=== PATIENT | female | born 1980 | race Caucasian/White ===

== ENCOUNTER 2024-02-26 14:42 | Emergency (ER) | payer BC, SELFPAY ==
[2024-02-26] VITALS (17 sets, daily range): BP systolic 134–177; BP diastolic 68–88; PULSE 66–88; RESP 14–20; TEMP 36.2; O2SAT 94–98; BMI 56.6
--- NOTE | 2024-02-26 15:05 | CRLHL7_ITS ---
For Patients: As a result of the Cures Act, medical imaging exams and procedure reports are released immediately into your electronic medical record. You may view this report before your referring provider. If you have questions, please contact your health care provider. INDICATION: LEFT ARM WEAKNESS COMPARISON: None TECHNIQUE: CT of the head without contrast. FINDINGS: Brain Parenchyma: No acute infarct, acute intracranial hemorrhage, mass effect, or midline shift. Ventricles: No hydrocephalus. Extra-axial Spaces: No abnormal fluid collection. Paranasal sinuses: No significant mucosal thickening. Orbits: Unremarkable Mastoid Sinuses: Unremarkable Cranium: No acute fracture Soft tissues: Unremarkable IMPRESSION: No CT evidence of an acute intracranial process. Please note that all CT scans at this facility use dose modulation, iterative reconstruction, and/or weight-based dosing when appropriate to reduce radiation dose to as low as reasonably achievable. Dictated by Brent Chacon MD @ 02/26/2024 3:25:10 PM (Electronically Signed)
--- NOTE | 2024-02-26 15:30 | ED_ITS ---
HPI - Neuro Symptoms/Deficit General Date Seen: 02/26/24 <Nolberto Bennett MD - Last Filed: 02/27/24 09:41> Chief Complaint: Neuro Symptoms/Altered Deficit <Nolberto Bennett MD - Last Filed: 02/27/24 09:41> Stated Complaint: LT arm tingling, high bp and pulse <Nolberto Bennett MD - Last Filed: 02/27/24 09:41> Time Seen by Provider: 02/26/24 15:01 <Nolberto Bennett MD - Last Filed: 02/27/24 09:41> Source: patient <Nolberto Bennett MD - Last Filed: 02/27/24 09:41> Mode of arrival: ambulatory <Nolberto Bennett MD - Last Filed: 02/27/24 09:41> Limitations: no limitations <Nolberto Bennett MD - Last Filed: 02/27/24 09:41> History of Present Illness HPI Narrative: Patient is a very nice 43-year-old female who presents here for evaluation of left arm numbness tingling and clumsiness that occurred since 12:30 p.m. while she was at work. She said she noted that it almost came from her fingers up to her neck and face, her co-worker noted that her face was red. It has improved markedly since then, with only some clumsiness of her left hand notable at the present time. She notes no nausea no vomiting, and denies a headache, has never before had this, with no previous history of strokes or any cardi ovascular disease. Is a nonsmoker lifetime. Denies a history of diabetes. <Nolberto Bennett MD - Last Filed: 02/27/24 09:41> Location: left face <Nolberto Bennett MD - Last Filed: 02/27/24 09:41> History of same: No <Nolberto Bennett MD - Last Filed: 02/27/24 09:41> Severity: moderate <Nolberto Bennett MD - Last Filed: 02/27/24 09:41> Quality: weak and improving <Nolberto Bennett MD - Last Filed: 02/27/24 09:41> Relieving factors: none <Nolberto Bennett MD - Last Filed: 02/27/24 09:41> Exacerbating factors: none <Nolberto Bennett MD - Last Filed: 02/27/24 09:41> Context: sudden onset <Nolberto Bennett MD - Last Filed: 02/27/24 09:41> On Anticoagulants: No <Nolberto Bennett MD - Last Filed: 02/27/24 09:41> Treatments Prior to Arrival: none <Nolberto Bennett MD - Last Filed: 02/27/24 09:41> Related Data Home Medications: Home Medications ?Medication ?Instructions ?Recorded ?Confirmed lisinopril 20 mg tablet 20 mg PO DAILY 03/28/23 02/26/24 Previous Rx's ?Medication ?Instructions ?Recorded aspirin 81 mg capsule 81 mg PO DAILY #30 caps 02/26/24 clopidogrel 75 mg tablet (Plavix) 75 mg PO DAILY #20 tabs 02/26/24 <Nolberto Bennett MD - Last Filed: 02/27/24 09:41> Allergies/Adverse Reactions: Allergies Allergy/AdvReac Type Severity Reaction Status Date / Time Penicillins Allergy Hives Verified 02/26/24 14:52 <Nolberto Bennett MD - Last Filed: 02/27/24 09:41> Review of Systems Status of ROS: Reports: 10 or more systems reviewed and unremarkable except as noted in History and below <Nolberto Bennett MD - Last Filed: 02/27/24 09:41> Exam Narrative: Exam Narrative: Patient is seen in room a, other than having some anxiety she appears to be in no apparent distress GCS is 15/15, alert oriented x3, pupils equal round reactive to light she tracks normally there is no visual field abnormality, there is no nystagmus or TMs are normal bilaterally, oropharynx is normal tongue protrudes normal in the midline, her neck is supple full range of motion carotid upstrokes are equal bilaterally JVP is flat her chest is good air entry bilaterally with no wheezing crackles noted heart sounds are normal she is right-hand dominant, moves her extremities normal, there is no pronator drift, E she is able to walk normally, heel and toe walking were normal for me in the room, sure speech is normal. NIH screen is 1, with some clumsiness noted of her left hand. <Nolberto Bennett MD - Last Filed: 02/27/24 09:41> Const: Vital Signs, click to edit/add: Vital Signs - 24 hr 02/26/24 14:53 02/26/24 15:15 02/26/24 15:27 Temperature 97.1 F L Pulse Rate Pulse Rate [Pulse Oximeter] 86 85 Respiratory Rate 14 20 Blood Pressure Blood Pressure [Ri ght Forearm] 177/77 H 149/88 H Pulse Oximetry 97 97 97 Oxygen Delivery Me thod Room Air Room Air 02/26/24 15:27 02/26/24 15:30 02/26/24 15:31 Temperature Pulse Rate 88 81 83 Pulse Rate [Pulse Oximeter] Respiratory Rate 20 Blood Pressure 172/73 H Blood Pressure [Ri ght Forearm] Pulse Oximetry 97 97 96 Oxygen Delivery Me thod 02/26/24 15:46 02/26/24 15:47 02/26/24 15:48 Temperature Pulse Rate 75 76 76 Pulse Rate [Pulse Oximeter] Respiratory Rate 20 Blood Pressure 134/68 Blood Pressure [Ri ght Forearm] Pulse Oximetry 97 98 95 Oxygen Delivery Me thod 02/26/24 16:00 02/26/24 17:29 02/26/24 17:30 Temperature Pulse Rate 79 72 71 Pulse Rate [Pulse Oximeter] Respiratory Rate Blood Pressure Blood Pressure [Ri ght Forearm] Pulse Oximetry 97 94 96 Oxygen Delivery Me thod 02/26/24 17:31 02/26/24 17:32 02/26/24 17:45 Temperature Pulse Rate 69 66 72 Pulse Rate [Pulse Oximeter] Respiratory Rate 20 Blood Pressure 153/77 H Blood Pressure [Ri ght Forearm] Pulse Oximetry 96 96 96 Oxygen Delivery Me thod 02/26/24 18:00 02/26/24 18:59 02/26/24 19:00 Temperature Pulse Rate 69 76 Pulse Rate [Pulse Oximeter] Respiratory Rate 16 Blood Pressure 145/84 H Blood Pressure [Ri ght Forearm] Pulse Oximetry 97 96 Oxygen Delivery Me thod <Nolberto Bennett MD - Last Filed: 02/27/24 09:41> Vital Signs, click to edit/add: Vital Signs - 24 hr 02/26/24 14:53 02/26/24 15:15 02/26/24 15:27 Temperature 97.1 F L Pulse Rate Pulse Rate [Pulse Oximeter] 86 85 Respiratory Rate 14 20 Blood Pressure Blood Pressure [Ri ght Forearm] 177/77 H 149/88 H Pulse Oximetry 97 97 97 Oxygen Delivery Me thod Room Air Room Air 02/26/24 15:27 02/26/24 15:30 02/26/24 15:31 Temperature Pulse Rate 88 81 83 Pulse Rate [Pulse Oximeter] Respiratory Rate 20 Blood Pressure 172/73 H Blood Pressure [Ri ght Forearm] Pulse Oximetry 97 97 96 Oxygen Delivery Me thod 02/26/24 15:46 02/26/24 15:47 02/26/24 15:48 Temperature Pulse Rate 75 76 76 Pulse Rate [Pulse Oximeter] Respiratory Rate 20 Blood Pressure 134/68 Blood Pressure [Ri ght Forearm] Pulse Oximetry 97 98 95 Oxygen Delivery Me thod 02/26/24 16:00 02/26/24 17:29 02/26/24 17:30 Temperature Pulse Rate 79 72 71 Pulse Rate [Pulse Oximeter] Respiratory Rate Blood Pressure Blood Pressure [Ri ght Forearm] Pulse Oximetry 97 94 96 Oxygen Delivery Me thod 02/26/24 17:31 02/26/24 17:32 02/26/24 17:45 Temperature Pulse Rate 69 66 72 Pulse Rate [Pulse Oximeter] Respiratory Rate 20 Blood Pressure 153/77 H Blood Pressure [Ri ght Forearm] Pulse Oximetry 96 96 96 Oxygen Delivery Me thod 02/26/24 18:00 02/26/24 18:59 02/26/24 19:00 Temperature Pulse Rate 69 76 Pulse Rate [Pulse Oximeter] Respiratory Rate 16 Blood Pressure 145/84 H Blood Pressure [Ri ght Forearm] Pulse Oximetry 97 96 Oxygen Delivery Me thod <Daniel Simeon MD - Last Filed: 02/26/24 20:35> Documenting provider has reviewed patient's vital signs: yes <Nolberto Bennett MD - Last Filed: 02/27/24 09:41> Course Course ED Course: Patient signed out to Dr. Simeon at shift change-1600. Pending MRI of the patient's brain and MR angiogram of her head neck. After MR studies are complete I will consult again with Stroke Neurology, Dr. Cuellar through [place]. MRI Brain Impression: Unremarkable MRI of the head. No pathologic enhancement. MRA Head Impression: No evidence of proximal arterial occlusion, aneurysm, dissection, or vascular malformation. MRA Neck Impression: Unremarkable MRA of the neck as far as visualized. Patient reports that she is doing better. Her report to me is that since about 06 10 today she had tingling and numbness in her left arm and a warm tingly feeling left side of her face. She never did have clumsiness or weakness (as had been reported to me by Dr. Bennett). Symptoms are slightly better but not resolved. Recheck-after neuro imaging complete discussed with Stroke Neurology from [facility]. Initial neurologist had gone off shift. Discussed with new neurologist Dr Mckinley. Since the patient still has some ongoing (although improving) symptoms, he would recommend aspirin 81 mg, Plavix 75 mg, admit for TIA workup with plan for cardiac monitoring and TTE, further labs. Discussed with the patient. She does not want to be admitted. She is reassured by her normal MRI and wants to discharge home. Discussed the risk that if this is a TIA could evolve into a completed stroke and that we do not have a clear diagnosis for her paresthesias source time. She understands the potential for risk of discharging and the uncertain we will based on the workup so far. Nonetheless she wants to discharge. I think she does have medical decision- making capacity. Discussed again with Stroke Neurology. He would recommend aspirin 81 mg per day indefinitely or at least until TIA is ruled out. Twenty-one days of Plavix 75 mg. Follow-up outpatient for outpatient TTE, cardiac monitoring, lipid profile, hemoglobin A1c. Discussed this plan of care with the patient. She agrees. First dose of aspirin and Plavix administered here in the ER tonight. Discussed bleeding risk on Plavix. She understands only a 21 day course of Plavix but should continue aspirin indefinitely or until her follow-up provider still hurts a safe to stop. Precautions for return to the ER reviewed.. <Daniel Simeon MD - Last Filed: 02/26/24 20:35> Vital Signs Vital signs: Initial Vital Signs Temperature 97.1 F L 02/26/24 14:53 Temperature Source Temporal Artery Scan 02/26/24 14:53 Pulse Rate 86 02/26/24 14:53 Pulse Rhythm Regular 02/26/24 14:53 Respiratory Rate 14 02/26/24 14:53 Blood Pressure 177/77 H 02/26/24 14:53 Blood Pressure Mean 110 H 02/26/24 14:53 Blood Pressure Position Sitting 02/26/24 14:53 Pulse Oximetry 97 02/26/24 14:53 Oxygen Delivery Method Room Air 02/26/24 14:53 Vital Signs Temperature 97.1 F L 02/26/24 14:53 Pulse Rate 86 02/26/24 14:53 Respiratory Rate 14 02/26/24 14:53 Blood Pressure 177/77 H 02/26/24 14:53 Pulse Oximetry 97 02/26/24 14:53 Oxygen Delivery Method Room Air 02/26/24 14:53 Temperature 97.1 F L 02/26/24 14:53 Pulse Rate 76 02/26/24 18:59 Respiratory Rate 16 02/26/24 19:00 Blood Pressure 145/84 H 02/26/24 19:00 Pulse Oximetry 96 02/26/24 18:59 Oxygen Delivery Method Room Air 02/26/24 15:15 <Nolberto Bennett MD - Last Filed: 02/27/24 09:41> Initial Vital Signs Temperature 97.1 F L 02/26/24 14:53 Temperature Source Temporal Artery Scan 02/26/24 14:53 Pulse Rate 86 02/26/24 14:53 Pulse Rhythm Regular 02/26/24 14:53 Respiratory Rate 14 02/26/24 14:53 Blood Pressure 177/77 H 02/26/24 14:53 Blood Pressure Mean 110 H 02/26/24 14:53 Blood Pressure Position Sitting 02/26/24 14:53 Pulse Oximetry 97 02/26/24 14:53 Oxygen Delivery Method Room Air 02/26/24 14:53 Vital Signs Temperature 97.1 F L 02/26/24 14:53 Pulse Rate 86 02/26/24 14:53 Respiratory Rate 14 02/26/24 14:53 Blood Pressure 177/77 H 02/26/24 14:53 Pulse Oximetry 97 02/26/24 14:53 Oxygen Delivery Method Room Air 02/26/24 14:53 Temperature 97.1 F L 02/26/24 14:53 Pulse Rate 76 02/26/24 18:59 Respiratory Rate 16 02/26/24 19:00 Blood Pressure 145/84 H 02/26/24 19:00 Pulse Oximetry 96 02/26/24 18:59 Oxygen Delivery Method Room Air 02/26/24 15:15 <Daniel Simeon MD - Last Filed: 02/26/24 20:35> Medications Administered Medications: Discontinued Medications Generic Name Dose Route Start Last Admin Trade Name Freq PRN Reason Stop Dose Admin Aspirin 81 mg 02/27/24 09:00 02/26/24 20:13 Aspirin 81 Mg Tab.Chew PO 81 mg DAILY CHAIM Administration Clopidogrel Bisulfate 75 mg 02/27/24 09:00 02/26/24 20:13 Clopidogrel 75 Mg Tablet PO 75 mg DAILY CHAIM Administration Sodium Chloride 1,000 mls @ 1,000 mls/hr 02/26/24 15:15 02/26/24 18:07 0.9 % Sodium Chloride 1000 Ml IV 02/26/24 16:14 Infused .Q1H CHAIM Infusion <Nolberto Bennett MD - Last Filed: 02/27/24 09:41> Discontinued Medications Generic Name Dose Route Start Last Admin Trade Name Freq PRN Reason Stop Dose Admin Aspirin 81 mg 02/27/24 09:00 02/26/24 20:13 Aspirin 81 Mg Tab.Chew PO 81 mg DAILY CHAIM Administration Clopidogrel Bisulfate 75 mg 02/27/24 09:00 02/26/24 20:13 Clopidogrel 75 Mg Tablet PO 75 mg DAILY CHAIM Administration Sodium Chloride 1,000 mls @ 1,000 mls/hr 02/26/24 15:15 02/26/24 18:07 0.9 % Sodium Chloride 1000 Ml IV 02/26/24 16:14 Infused .Q1H CHAIM Infusion <Daniel Simeon MD - Last Filed: 02/26/24 20:35> MDM - Neuro Symptoms/Deficit MDM Narrative Medical decision making narrative: Life-threatening differential diagnosis considered include stroke, coronary artery disease, pneumonia, and heart failure. Other differential diagnosis include but are not limited to electrolyte imbalances, anemia, medication reactions, and urinary tract infection I called the stroke code , she immediately got a CT by my review the CT of her head is normal. I contacted the stroke neurologist who saw hour via tele stroke, , she suggested aspirin, up that the head CT was negative, but recommended MRI imaging. Of her head neck. <Nolberto Bennett MD - Last Filed: 02/27/24 09:41> Medical Records Attestation: I reviewed the patient's medical records. <Nolberto Bennett MD - Last Filed: 02/27/24 09:41> Lab Data Labs: Lab Results 02/26/24 02/26/24 Range/Units 16:00 16:14 WBC 8.40 (4.50-11.00) K/uL RBC 4.94 (4.00-5.20) m/uL Hgb 14.0 (12.0-16.0) gm/dL Hct 42.6 (33.0-51.0) % MCV 86 (80-100) fL MCH 28 (26-34) pg MCHC 33 (32-36) gm/dL RDW Coeff of Shoaib 13.6 (11.5-15.5) % Plt Count 293 (140-440) K/uL Neut % (Auto) 60.9 (42.0-72.0) % Lymph % (Auto) 30.2 (20-44) % [place] % (Auto) 7.9 (0.0-11.0) % Eos % (Auto) 0.4 (0.0-7.0) % Baso % (Auto) 0.4 (0.0-3.0) % Neut # (Auto) 5.12 (1.7-7.0) K/uL Lymph # (Auto) 2.54 (0.90-2.90) K/uL [place] # (Auto) 0.70 (0.00-0.90) K/UL Eos # (Auto) 0.03 (0.00-0.50) K/uL Baso # (Auto) 0.03 (0.00-0.30) K/uL Abs Immat Gran (auto) 0.02 (0.00-0.30) K/uL Imm/Tot Granulo (auto) 0.2 % INR 0.98 (0.91-1.10) APTT 37 H (23-33) Seconds D-Dimer Quant (PE/DVT) 0.22 (0.00-0.50) ug/ml Sodium 139 (135-149) mmol/L Potassium 4.5 (3.6-5.1) mmol/L Chloride 102 (96-114) mmol/L Carbon Dioxide 31 (20-32) mmol/L Anion Gap 6 L (7-15) mEq/L BUN 14 (5-24) mg/dL Creatinine 0.7 (0.5-1.5) mg/dL Estimated Creat Clear 89.48 Estimated GFR 110 ml/min Glucose 108 (60-115) mg/dL Calcium 9.7 (8.4-10.6) mg/dL Total Bilirubin 0.5 (0.1-1.5) mg/dL AST 38 H (12-35) U/L ALT 43 H (4-35) U/L Alkaline Phosphatase 120 (40-150) U/L C-Reactive Protein 1.1 H (0.5-1.0) mg/dL Total Protein 7.7 (6.0-8.3) g/dL Albumin 4.6 (3.3-5.0) g/dL POC Troponin I 0.00 L (0.01-0.04) ng/ml <Nolberto Bennett MD - Last Filed: 02/27/24 09:41> Lab Results 02/26/24 02/26/24 Range/Units 16:00 16:14 WBC 8.40 (4.50-11.00) K/uL RBC 4.94 (4.00-5.20) m/uL Hgb 14.0 (12.0-16.0) gm/dL Hct 42.6 (33.0-51.0) % MCV 86 (80-100) fL MCH 28 (26-34) pg MCHC 33 (32-36) gm/dL RDW Coeff of Shoaib 13.6 (11.5-15.5) % Plt Count 293 (140-440) K/uL Neut % (Auto) 60.9 (42.0-72.0) % Lymph % (Auto) 30.2 (20-44) % [place] % (Auto) 7.9 (0.0-11.0) % Eos % (Auto) 0.4 (0.0-7.0) % Baso % (Auto) 0.4 (0.0-3.0) % Neut # (Auto) 5.12 (1.7-7.0) K/uL Lymph # (Auto) 2.54 (0.90-2.90) K/uL [place] # (Auto) 0.70 (0.00-0.90) K/UL Eos # (Auto) 0.03 (0.00-0.50) K/uL Baso # (Auto) 0.03 (0.00-0.30) K/uL Abs Immat Gran (auto) 0.02 (0.00-0.30) K/uL Imm/Tot Granulo (auto) 0.2 % INR 0.98 (0.91-1.10) APTT 37 H (23-33) Seconds D-Dimer Quant (PE/DVT) 0.22 (0.00-0.50) ug/ml Sodium 139 (135-149) mmol/L Potassium 4.5 (3.6-5.1) mmol/L Chloride 102 (96-114) mmol/L Carbon Dioxide 31 (20-32) mmol/L Anion Gap 6 L (7-15) mEq/L BUN 14 (5-24) mg/dL Creatinine 0.7 (0.5-1.5) mg/dL Estimated Creat Clear 89.48 Estimated GFR 110 ml/min Glucose 108 (60-115) mg/dL Calcium 9.7 (8.4-10.6) mg/dL Total Bilirubin 0.5 (0.1-1.5) mg/dL AST 38 H (12-35) U/L ALT 43 H (4-35) U/L Alkaline Phosphatase 120 (40-150) U/L C-Reactive Protein 1.1 H (0.5-1.0) mg/dL Total Protein 7.7 (6.0-8.3) g/dL Albumin 4.6 (3.3-5.0) g/dL POC Troponin I 0.00 L (0.01-0.04) ng/ml <Daniel Simeon MD - Last Filed: 02/26/24 20:35> ECG Data Attestation: I personally reviewed and interpreted this ECG as follows: <Nolberto Bennett MD - Last Filed: 02/27/24 09:41> ECG interpretation date: 02/26/24 <Nolberto Bennett MD - Last Filed: 02/27/24 09:41> Interpretation: EKG shows normal sinus rhythm, no acute ST wave changes ventricular rate is 84 normal QRS normal QT interval. <Nolberto Bennett MD - Last Filed: 09/17/24 09:41> Discharge Plan Discharge Clinical Impression: Paresthesia of arm, Facial paresthesia <Nolberto Bennett MD - Last Filed: 02/27/24 09:41> Patient Disposition: Home, Self-Care <Nolberto Bennett MD - Last Filed: 02/27/24 09:41> Condition: Stable <Nolberto Bennett MD - Last Filed: 02/27/24 09:41> Instructions: Paresthesia (ED) <Nolberto Bennett MD - Last Filed: 02/27/24 09:41> Additional Instructions: As we discussed, the cause for your numbness and unusual sensations in your arm and face are not clear at this time. No sign of a stroke on her MRI. It is important for you to follow-up with your regular doctor as soon as possible. You can ask your doctor to set you up with with a referral to Neurology Clinic as well. Ask your doctor also to help do further workup with the following tests: 1. lipid panel 2. Hemoglobin A1c measurement 3. Outpatient steward/stewardess second class to look for cardiac arrhythmias 4. Transthoracic echocardiogram Stroke neurologist recommend that you start on baby aspirin every day. Continue this until your regular doctor tells you to stop. The neurologist also recommends that you take an additional blood thinning medication call Plavix for 3 weeks and then stop. If you have any worsening symptoms or any concerns, please return to the ER immediately. <Nolberto Bennett MD - Last Filed: 02/27/24 09:41> Prescriptions: New clopidogrel [Plavix] 75 mg tablet 75 mg PO DAILY Qty: 20 0RF aspirin 81 mg capsule 81 mg PO DAILY Qty: 30 2RF No Action lisinopril 20 mg tablet 20 mg PO DAILY <Nolberto Bennett MD - Last Filed: 02/27/24 09:41> Follow Up/Referrals: Kelly Estrada MD [Primary Care Provider] - <Nolberto Bennett MD - Last Filed: 02/27/24 09:41> Stand Alone Forms: MyHealth Info Instructions <Nolberto Bennett MD - Last Filed: 02/27/24 09:41>
--- NOTE | 2024-02-26 15:34 | CRLHL7_ITS ---
For Patients: As a result of the Century Cures Act, medical imaging exams and procedure reports are released immediately into your electronic medical record. You may view this report before your referring provider. If you have questions, please contact your health care provider. Indication: Left arm clumsiness Technique: [id number] and Gadolinium bolus MR angiogram of the neck with 3D MIP reconstructions provided. All measurements are based on NASCET criteria. Postcontrast images obtained after administration of 30 cc Dotarem Gadolinium-based IV contrast. Comparison: No prior studies available for comparison at this institution. Findings: Both carotid systems are unremarkable in the neck. No evidence for hemodynamically significant internal carotid artery stenosis by NASCET criteria. The cervical segments of both vertebral arteries are patent. The visualized portions of the aortic arch, great vessel origins and proximal subclavian arteries are unremarkable. Impression: Unremarkable MRA of the neck as far as visualized. Dictated by Joshua Zuniga MD @ 02/26/2024 6:30:19 PM (Electronically Signed)
--- NOTE | 2024-02-26 15:34 | CRLHL7_ITS ---
For Patients: As a result of the Century Cures Act, medical imaging exams and procedure reports are released immediately into your electronic medical record. You may view this report before your referring provider. If you have questions, please contact your health care provider. Indication: Left arm clumsiness Technique: 3D [id number] MR angiogram of the [id number] with 3-dimensional MIP projections were submitted. Comparison: No prior studies available for comparison at this institution. Findings: The visualized first and second order intracranial vessels are unremarkable. origins of the posterior cerebral arteries. No occlusion/filling defect or acquired arterial stenosis identified. No aneurysm or vascular malformation seen. Impression: No evidence of proximal arterial occlusion, aneurysm, dissection, or vascular malformation. Dictated by Joshua Zuniga MD @ 02/26/2024 6:25:04 PM (Electronically Signed)
--- NOTE | 2024-02-26 15:34 | CRLHL7_ITS ---
For Patients: As a result of the Century Cures Act, medical imaging exams and procedure reports are released immediately into your electronic medical record. You may view this report before your referring provider. If you have questions, please contact your health care provider. Indication: Left arm clumsiness. Technique: Noncontrast sagittal T1, axial FLAIR, T2 turbo spine echo, and diffusion weighted images. Supplemental post contrast T1 weighted axial and coronal sequences are provided after administration of 30 mL Dotarem gadolinium-based IV contrast. Comparison: CT 02/26/2024 Findings: Examination is limited by motion artifact. The ventricles, sulci and gyri are normal size, shape and contour for age. The midline structures are centrally located with no evidence of shift. There are no suspicious intra or extra-axial fluid collections. No evidence of restricted diffusion to suggest acute ischemia. Expected flow voids in the cavernous carotids and basilar artery. No abnormal contrast enhancement involving the brain parenchyma, meninges, calvarium or skull base. Mild polypoid mucosal thickening in right sphenoid sinus. Impression: Unremarkable MRI of the head. No pathologic enhancement. Dictated by Joshua Zuniga MD @ 02/26/2024 6:28:24 PM (Electronically Signed)
[2024-02-26 16:16] LABS: Basophils Absolute Auto 0.03 K/uL (0.00-0.30); Basophils Percent Auto 0.4 % (0.0-3.0); Eosinophils Absolute Auto 0.03 K/uL (0.00-0.50); Eosinophils Percent Auto 0.4 % (0.0-7.0); Hematocrit 42.6 % (33.0-51.0); Immature Granulocytes Abs Auto 0.02 K/uL (0.00-0.30); Immature Granulocytes Pct Auto 0.2 %; Lymphocytes Absolute Auto 2.54 K/uL (0.90-2.90); Lymphocytes Percent Auto 30.2 % (20-44); Mean Corpuscular HGB Conc 33 gm/dL (32-36); Mean Corpuscular Hemoglobin 28 pg (26-34); Mean Corpuscular Volume 86 fL (80-100); Monocytes Percent Auto 7.9 % (0.0-11.0); Neutrophils Absolute Auto 5.12 K/uL (1.7-7.0); Neutrophils Percent Auto 60.9 % (42.0-72.0); Platelet Count* 293 K/uL (140-440); RDW Coefficient of Variation % 13.6 % (11.5-15.5); Red Blood Count 4.94 m/uL (4.00-5.20)
[2024-02-26 16:30] LABS: Slide Review Reflex No
[2024-02-26 16:32] LABS: Albumin* 4.6 g/dL (3.3-5.0); Chloride* 102 mmol/L (96-114)
[2024-02-26 16:33] LABS: Potassium* 4.5 mmol/L (3.6-5.1); Sodium* 139 mmol/L (135-149)
[2024-02-26 16:35] LABS: Bilirubin Total* 0.5 mg/dL (0.1-1.5); Creatinine* 0.7 mg/dL (0.5-1.5); Est. Creatinine Clearance* 89.48; Estimated Glomerular Filt Rate 110 ml/min
[2024-02-26 16:36] LABS: Alanine Aminotransferase* 43 U/L (4-35); Alkaline Phosphatase* 120 U/L (40-150); Anion Gap 6 mEq/L (7-15); Aspartate Amino Transferase* 38 U/L (12-35); Blood Urea Nitrogen* 14 mg/dL (5-24); Calcium* 9.7 mg/dL (8.4-10.6); Carbon Dioxide* 31 mmol/L (20-32); Glucose* 108 mg/dL (60-115); Total Protein* 7.7 g/dL (6.0-8.3)
[2024-02-26 16:39] LABS: C Reactive Protein* 1.1 mg/dL (0.5-1.0)
[2024-02-26 16:54] LABS: INR 0.98 (0.91-1.10); Prothrombin Time 13.5 Seconds
[2024-02-26 16:55] LABS: Partial Thromboplastin Time* 37 Seconds (23-33)
[2024-02-26 17:06] LABS: D Dimer Quantitative* 0.22 ug/ml (0.00-0.50)
[2024-02-26] MEDS: 0.9 % SODIUM CHLORIDE 1000 ml 1,000 ML IV (17:30)
[2024-02-26] MEDS: ASPIRIN 81 MG TAB.CHEW PO (20:13)
[2024-02-26] MEDS: CLOPIDOGREL 75 MG TABLET PO (20:13)
== END 2024-02-26 20:25 | disposition home or self-care (01) ==
PROVIDERS: Family Medicine; Emergency Provider Emergency Medicine; PCP Family Medicine
DX: R20.0 Anesthesia of skin (principal)
CPT/HCPCS: 36415; 70450; 70544; 70549; 70553; 80048; 80053; 83880; 84484; 85025; 85379; 85610; 85730; 86140; 93005; 94761; 99284; 99285; 99291; A9575; J7030

== ENCOUNTER 2024-05-02 14:59 | Emergency (ER) | payer BC, SELFPAY ==
[2024-05-02] VITALS (24 sets, daily range): BP systolic 107–136; BP diastolic 57–84; PULSE 70–85; RESP 16–20; TEMP 36.7; O2SAT 95–98; BMI 54.4
--- NOTE | 2024-05-02 16:00 | ED_ITS ---
HPI - General Adult General Chief complaint: Chest Pain Stated complaint: Chest pain, dizziness, L leg pain/back pain Time Seen by Provider: 05/02/24 15:20 History of Present Illness HPI narrative: This 43-year-old female comes in with her stating brief episodes of chest discomfort and some generalized fatigue. She does report anxiety about her health symptoms. She states that she has been feeling these symptoms most every day over the past 3 months or so. She also reports some lightheadedness episodes. She is taking a antihypertensive, lisinopril 40 mg daily. She does not report any nausea, vomiting, shortness of breath, diaphoresis, or exercise intolerance. She states that she is getting 10,000 steps a day and is working on losing weight. She does have insomnia symptoms and recently started taking hydroxyzine over the past couple days. She takes that at night and this is helped her sleep. She clarifies the chest discomfort as random brief episodes of pain usually in the left upper anterior chest and now sometimes in the right upper anterior chest. These symptoms last for a few seconds and then go away. She also reports some tingling symptoms in her fingers and in her left leg at times. She does not report any weakness. Related Data Home Medications ?Medication ?Instructions ?Recorded ?Confirmed hydroxyzine HCl 25 mg tablet mg PO 05/02/24 lisinopril 40 mg tablet 40 mg PO DAILY 05/02/24 05/02/24 Previous Rx's ?Medication ?Instructions ?Recorded aspirin 81 mg capsule 81 mg PO DAILY #30 caps 02/26/24 Allergies Allergy/AdvReac Type Severity Reaction Status Date / Time Penicillins Allergy Hives Verified 05/02/24 15:05 Review of Systems Status of ROS: Reports: 10 or more systems reviewed and unremarkable except as noted in History and below Narrative: Constitutional: No fevers, no weight gain or loss. Eyes: No discharge. No vision changes. HENT: No congestion, no sore throat, no ear pain. Cardiovascular: No palpitations. Respiratory: No shortness of breath, no wheezes, no cough. Gastrointestinal: No abdominal pain, no vomiting, no diarrhea. Genitourinary: No dysuria, no hematuria. Musculoskeletal: Normal range of motion. Skin: No rashes, no pruritis. Neurological: No dizziness, weakness, sensory change, speech change. Endo/Heme/Allergies: No bruising or bleeding. No polydipsia. Pysch: no suicidality. She reports anxiety related to her health. She does have some insomnia symptoms at times. All other systems reviewed and are negative. [facility] Social History Smoking Status: Never smoker Second hand tobacco smoke exposure: No How often do you have a drink containing alcohol: never AUDIT-C Alcohol total score: 0 Non-prescribed substance use: denies use Exam Narrative: Exam Narrative: Constitutional: Well-developed, well-nourished, no acute distress. HEENT: Normocephalic, atraumatic. Neck: Normal range of motion. Nontender. Supple. Heart: Regular. No murmurs. Normal rate. Intact distal pulses. Lungs: Clear to auscultation. No chest discomfort. No wheezes, rhonchi, or rales. Abdomen: Normal bowel sounds. Nontender. No rebound tenderness. Genitalia: Deferred. Back: No midline tenderness. Normal range of motion. Extremities: Normal range of motion. No injury. Skin: Intact. No rash. Warm. No erythema or pallor. Neurologic: No altered sensation. No weakness. Alert and oriented. Psychiatric: No suicidality. No anxiety or depression. No insomnia. Nursing notes and vitals signs are reviewed. Const: Vital Signs, click to edit/add: Vital Signs - 24 hr 05/02/24 15:06 05/02/24 15:21 05/02/24 15:30 Temperature 98.1 F Pulse Rate 82 83 Pulse Rate [Pulse Oximeter] 78 Respiratory Rate 20 Blood Pressure Blood Pressure [Ri ght Upper Arm] 136/84 Pulse Oximetry 97 96 98 Oxygen Delivery Me thod Room Air 05/02/24 15:45 05/02/24 16:00 05/02/24 16:15 Temperature Pulse Rate 78 77 74 Pulse Rate [Pulse Oximeter] Respiratory Rate Blood Pressure Blood Pressure [Ri ght Upper Arm] Pulse Oximetry 95 95 96 Oxygen Delivery Me thod 05/02/24 16:23 05/02/24 16:24 05/02/24 16:30 Temperature Pulse Rate 74 78 75 Pulse Rate [Pulse Oximeter] Respiratory Rate 16 Blood Pressure 125/59 L Blood Pressure [Ri ght Upper Arm] Pulse Oximetry 96 97 98 Oxygen Delivery Me thod 05/02/24 16:32 05/02/24 16:45 05/02/24 17:00 Temperature Pulse Rate 70 76 75 Pulse Rate [Pulse Oximeter] Respiratory Rate 16 Blood Pressure 107/60 Blood Pressure [Ri ght Upper Arm] Pulse Oximetry 97 95 95 Oxygen Delivery Me thod 05/02/24 17:02 05/02/24 17:03 05/02/24 17:15 Temperature Pulse Rate 75 76 75 Pulse Rate [Pulse Oximeter] Respiratory Rate 16 Blood Pressure 108/61 Blood Pressure [Ri ght Upper Arm] Pulse Oximetry 97 96 96 Oxygen Delivery Me thod 05/02/24 17:30 05/02/24 17:32 05/02/24 17:33 Temperature Pulse Rate 79 75 79 Pulse Rate [Pulse Oximeter] Respiratory Rate 16 Blood Pressure 110/57 L Blood Pressure [Ri ght Upper Arm] Pulse Oximetry 96 97 96 Oxygen Delivery Me thod 05/02/24 17:45 05/02/24 18:00 05/02/24 18:02 Temperature Pulse Rate 76 78 77 Pulse Rate [Pulse Oximeter] Respiratory Rate 16 Blood Pressure 115/65 Blood Pressure [Ri ght Upper Arm] Pulse Oximetry 95 95 96 Oxygen Delivery Me thod 05/02/24 18:15 05/02/24 18:30 05/02/24 18:32 Temperature Pulse Rate 83 85 84 Pulse Rate [Pulse Oximeter] Respiratory Rate 16 Blood Pressure 123/80 Blood Pressure [Ri ght Upper Arm] Pulse Oximetry 96 97 96 Oxygen Delivery Me thod Course Vital Signs Vital signs: Initial Vital Signs Temperature 98.1 F 05/02/24 15:06 Temperature Source Temporal Artery Scan 05/02/24 15:06 Pulse Rate 78 05/02/24 15:06 Pulse Rhythm Regular 05/02/24 15:06 Pulse Strength 3+ Normal 05/02/24 15:06 Respiratory Rate 20 05/02/24 15:06 Blood Pressure 136/84 05/02/24 15:06 Blood Pressure Mean 101 05/02/24 15:06 Blood Pressure Position Sitting 05/02/24 15:06 Pulse Oximetry 97 05/02/24 15:06 Oxygen Delivery Method Room Air 05/02/24 15:06 Vital Signs Temperature 98.1 F 05/02/24 15:06 Pulse Rate 78 05/02/24 15:06 Respiratory Rate 20 05/02/24 15:06 Blood Pressure 136/84 05/02/24 15:06 Pulse Oximetry 97 05/02/24 15:06 Oxygen Delivery Method Room Air 05/02/24 15:06 Temperature 98.1 F 05/02/24 15:06 Pulse Rate 84 05/02/24 18:32 Respiratory Rate 16 05/02/24 18:32 Blood Pressure 123/80 05/02/24 18:32 Pulse Oximetry 96 05/02/24 18:32 Oxygen Delivery Method Room Air 05/02/24 15:06 Medical Decision Making MDM Narrative Medical decision making narrative: This patient comes in reporting very brief episodes of chest pain and occasions of lightheadedness. She also has some tingling sensations in various places randomly. She does have anxiety about her health and these symptoms. Her EKG is normal and labs are acquired and these also all returned with normal results. This was reassuring to the patient. She is taking lisinopril 40 mg daily and had this increased recently. Her blood pressure did register a systolic value of around 110 and it was around the time that she was feeling some lightheadedness symptoms. She takes this pill once a day. I recommended that she consider taking it at nighttime where the peak effect may not be as consequential if in fact this is contributing to her symptoms. I advised her to follow-up with her primary physician. She also has an appointment in the more distant future with a neurologist in the clinic. Lab Data Labs: Lab Results 05/02/24 05/02/24 Range/Units 15:55 16:13 WBC 8.86 (4.50-11.00) K/uL RBC 5.24 H (4.00-5.20) m/uL Hgb 14.6 (12.0-16.0) gm/dL Hct 44.6 (33.0-51.0) % MCV 85 (80-100) fL MCH 28 (26-34) pg MCHC 33 (32-36) gm/dL RDW Coeff of Shoaib 13.9 (11.5-15.5) % Plt Count 323 (140-440) K/uL Neut % (Auto) 50.2 (42.0-72.0) % Lymph % (Auto) 38.6 (20-44) % White % (Auto) 9.7 (0.0-11.0) % Eos % (Auto) 0.8 (0.0-7.0) % Baso % (Auto) 0.6 (0.0-3.0) % Neut # (Auto) 4.45 (1.7-7.0) K/uL Lymph # (Auto) 3.42 H (0.90-2.90) K/uL White # (Auto) 0.90 (0.00-0.90) K/UL Eos # (Auto) 0.07 (0.00-0.50) K/uL Baso # (Auto) 0.05 (0.00-0.30) K/uL Abs Immat Gran (auto) 0.01 (0.00-0.30) K/uL Imm/Tot Granulo (auto) 0.1 % ESR 17 (2-20) mm/hr Sodium 137 (135-149) mmol/L Potassium 4.5 (3.6-5.1) mmol/L Chloride 100 (96-114) mmol/L Carbon Dioxide 27 (20-32) mmol/L Anion Gap 10 (7-15) mEq/L BUN 16 (5-24) mg/dL Creatinine 1.0 (0.5-1.5) mg/dL Estimated Creat Clear 65.27 Estimated GFR 72 ml/min Glucose 112 (60-115) mg/dL Calcium 9.4 (8.4-10.6) mg/dL Vitamin B12 545 (243-894) pg/mL TSH 1.870 (0.270-4.20) uIU/mL POC Troponin I 0.00 L (0.01-0.04) ng/ml ECG Data Attestation: I personally reviewed and interpreted this ECG as follows: Interpretation: Normal sinus rhythm. Rate is 80 beats per minute. There are no ST or T-wave abnormalities. Discharge Plan Discharge Clinical Impression: Atypical chest pain, Episodic lightheadedness Additional Instructions: Continue current plans. Consider switching lisinopril to dosing in the evening. Record blood pressures and follow up with primary physician for ongoing management. Return if worsening. Prescriptions: No Action aspirin 81 mg capsule 81 mg PO DAILY Qty: 30 2RF hydroxyzine HCl 25 mg tablet PO lisinopril 40 mg tablet 40 mg PO DAILY Follow Up/Referrals: Kelly Estrada MD [Primary Care Provider] - Stand Alone Forms: MyHealth Info Instructions
[2024-05-02 16:22] LABS: Basophils Absolute Auto 0.05 K/uL (0.00-0.30); Basophils Percent Auto 0.6 % (0.0-3.0); Eosinophils Absolute Auto 0.07 K/uL (0.00-0.50); Eosinophils Percent Auto 0.8 % (0.0-7.0); Hematocrit 44.6 % (33.0-51.0); Hemoglobin* 14.6 gm/dL (12.0-16.0); Immature Granulocytes Abs Auto 0.01 K/uL (0.00-0.30); Immature Granulocytes Pct Auto 0.1 %; Lymphocytes Absolute Auto 3.42 K/uL (0.90-2.90); Lymphocytes Percent Auto 38.6 % (20-44); Mean Corpuscular HGB Conc 33 gm/dL (32-36); Mean Corpuscular Hemoglobin 28 pg (26-34); Mean Corpuscular Volume 85 fL (80-100); Monocytes Percent Auto 9.7 % (0.0-11.0); Neutrophils Absolute Auto 4.45 K/uL (1.7-7.0); Neutrophils Percent Auto 50.2 % (42.0-72.0); Platelet Count* 323 K/uL (140-440); RDW Coefficient of Variation % 13.9 % (11.5-15.5); Red Blood Count 5.24 m/uL (4.00-5.20); White Blood Count* 8.86 K/uL (4.50-11.00)
[2024-05-02 16:42] LABS: Slide Review Reflex No
[2024-05-02 16:54] LABS: Chloride* 100 mmol/L (96-114); Sodium* 137 mmol/L (135-149)
[2024-05-02 16:55] LABS: Potassium* 4.5 mmol/L (3.6-5.1)
[2024-05-02 16:57] LABS: Est. Creatinine Clearance* 65.27; Estimated Glomerular Filt Rate 72 ml/min
[2024-05-02 16:58] LABS: Anion Gap 10 mEq/L (7-15); Blood Urea Nitrogen* 16 mg/dL (5-24); Calcium* 9.4 mg/dL (8.4-10.6); Carbon Dioxide* 27 mmol/L (20-32); Glucose* 112 mg/dL (60-115)
[2024-05-02 17:47] LABS: Vitamin B12* 545 pg/mL (243-894)
[2024-05-02 18:17] LABS: Erythrocyte SedimentationRate* 17 mm/hr (2-20)
== END 2024-05-02 18:54 | disposition home or self-care (01) ==
LOC: ED 16:08
PROVIDERS: Emergency Provider Emergency Medicine Emergency Medical Services; PCP Family Medicine
DX: R07.9 Chest pain, unspecified (principal)
CPT/HCPCS: 36415; 80048; 82607; 84443; 84484; 85025; 85651; 93005; 99284